=== PATIENT | female | born 1950 | race Caucasian/White ===

== ENCOUNTER → 2017-06-04 | Outpatient (CLI) | payer MEDICARE | END | disposition home or self-care (01) | LOC: LAB 07:52 → LAB SHORT 07:52 | DX: L57.0 Actinic keratosis (principal) | CPT/HCPCS: 88305 ==

== ENCOUNTER 2020-12-10 09:20 | Day surgery (SDC) | payer OTHER ==
[~2020-12-10] VITALS: Ht 180.3 cm; Wt 208.8 kg
[2020-12-10] MEDS ORDERED: METF500 PO (09:54)
[2020-12-10] MEDS ORDERED: Prinivil10 MG PO (09:55)
[2020-12-10] MEDS ORDERED: HYDCHL25 PO (09:55)
[2020-12-10] MEDS ORDERED: FISH OIL 1,2001 EAC7 PO (09:56)
[2020-12-10] MEDS ORDERED: ATOR40TA PO (09:56)
--- NOTE | 2020-12-10 10:04 | NUR ---
12/10/20 [address] [place] Reyes CALL LIGHT WITHIN REACH
--- NOTE | 2020-12-10 12:11 | NUR ---
12/10/20 1211 TOM TAVERA NAUSEA STARTING TO BE BETTER SHE STATES- STILL MOANING
== END 2020-12-10 13:01 | disposition home or self-care (01) ==
LOC: ORSCSDS 09:20
PROVIDERS: Orthopaedic Surgery
PROC: 0LX80ZZ Transfer Left Hand Tendon, Open Approach (ICD-10-PCS; principal; 2020-12-10 10:45)
PROC: 0RQT0ZZ Repair Left Carpometacarpal Joint, Open Approach (ICD-10-PCS; principal; 2020-12-10 10:45)
DX: M18.12 Unilateral primary osteoarthritis of first carpometacarpal joint, left hand (principal); I10 Essential (primary) hypertension; E78.5 Hyperlipidemia, unspecified; E11.9 Type 2 diabetes mellitus without complications; N18.9 Chronic kidney disease, unspecified; Z79.899 Other long term (current) drug therapy
CPT/HCPCS: 82947; A9270; C1713; J2370; J2405; J2704; J2795; J3010; J7120